=== PATIENT | female | born 1990 | race Caucasian/White ===

== ENCOUNTER 2017-01-04 09:45 | Emergency (ER) | payer OTHER ==
[2017-01-04 09:51] VITALS: BP 103/67
== END 2017-01-04 11:40 | disposition home or self-care (01) ==
LOC: ED 09:45
DX: S92.355A Nondisplaced fracture of fifth metatarsal bone, left foot, initial encounter for closed fracture (principal); M77.9 Enthesopathy, unspecified; X50.1XXA Overexertion from prolonged static or awkward postures, initial encounter; Y93.01 Activity, walking, marching and hiking; Y92.410 Unspecified street and highway as the place of occurrence of the external cause; Y99.8 Other external cause status

== ENCOUNTER 2018-10-06 18:43 | Emergency (ER) | payer OTHER ==
[2018-10-06 20:41] LABS: BASOPHIL % 0.6 % (0-2); PLATELET COUNT 281 x10^3mcL (130-400); RED CELL DISTRIBUTION WIDTH 12.4 % (11.5-14.5)
[2018-10-06 20:53] LABS: CALCIUM 8.6 mg/dL (8.5-10.1); CARBON DIOXIDE 26.4 mmol/L (21-32); CHLORIDE SERUM 104 mmol/L (98-107); CREATININE SERUM 0.6 mg/dL (0.6-1.0); GFR1 > 60 mL/min; GLUCOSE SERUM 91 mg/dL (74-106); POTASSIUM SERUM 3.7 mmol/L (3.5-5.1); SODIUM SERUM 140 mmol/L (136-145)
[2018-10-06 20:59] LABS: ALBUMIN 3.7 g/dL (3.4-5.0); ALKALINE PHOSPHATASE 87 U/L (46-116); ALT/SGPT 47 U/L (14-59); AST/SGOT 20 U/L (15-37); BILIRUBIN TOTAL 0.1 mg/dL (0.20-1.00); TOTAL PROTEIN, SERUM 7.5 g/dL (6.4-8.2)
[2018-10-06 21:32] VITALS: BP 100/78
== END 2018-10-06 21:32 | disposition home or self-care (01) ==
LOC: ED 18:43
PROVIDERS: Emergency Medicine
DX: B34.9 Viral infection, unspecified (principal)
CPT/HCPCS: J2405; J7030

== ENCOUNTER 2018-12-25 11:15 | Emergency (ER) | payer OTHER ==
[~2018-12-25] VITALS: Ht 152.4 cm; Wt 54.4 kg
[2018-12-25 11:24] VITALS: Ht 152.4 cm; Wt 54.4 kg
[2018-12-25 13:58] VITALS: BP 112/74
== END 2018-12-25 13:58 | disposition home or self-care (01) ==
LOC: ED 11:15
DX: L72.3 Sebaceous cyst (principal)

== ENCOUNTER 2019-02-15 16:55 | Emergency (ER) | payer OTHER ==
[~2019-02-15] VITALS: Ht 152.4 cm; Wt 53.5 kg
[2019-02-15 17:04] VITALS: Ht 152.4 cm; Wt 53.5 kg
[2019-02-15 17:46] LABS: BASOPHIL % 1.1 % (0-2); PLATELET COUNT 353 x10^3mcL (130-400); RED CELL DISTRIBUTION WIDTH 12.7 % (11.5-14.5)
[2019-02-15 17:53] LABS: CALCIUM 9.4 mg/dL (8.5-10.1); CARBON DIOXIDE 27.1 mmol/L (21-32); CHLORIDE SERUM 102 mmol/L (98-107); CREATININE SERUM 0.7 mg/dL (0.6-1.0); GFR1 > 60 mL/min; GLUCOSE SERUM 108 mg/dL (74-106); POTASSIUM SERUM 3.9 mmol/L (3.5-5.1); SODIUM SERUM 137 mmol/L (136-145)
[2019-02-15 18:01] LABS: ALBUMIN 3.9 g/dL (3.4-5.0); ALKALINE PHOSPHATASE 86 U/L (46-116); ALT/SGPT 20 U/L (14-59); AST/SGOT 13 U/L (15-37); BILIRUBIN TOTAL 0.19 mg/dL (0.20-1.00)
[2019-02-15 18:26] LABS: microscopic required? YES; urine erythrocyte 3+ (NEGATIVE)
[2019-02-15 18:53] VITALS: BP 106/64
== END 2019-02-15 18:53 | disposition home or self-care (01) ==
LOC: ED 16:55
PROVIDERS: Emergency Medicine
DX: O20.0 Threatened abortion (principal); N39.0 Urinary tract infection, site not specified
CPT/HCPCS: 36415